=== PATIENT | male | born 1980 | race Caucasian/White ===

== ENCOUNTER 2017-07-05 17:46 | Emergency (ER) | payer BC, OTHER ==
[~2017-07-05] VITALS: Ht 180.3 cm; Wt 89.0 kg
[~2017-07-05 17:46] MED LIST: IBUP800T23 PO; INDO50CA PO; PERC5TAB12 PO; ULTR50TA PO; VICOTAB4 PO
[2017-07-05] MEDS ORDERED: IOHEXOL 350 MG/ML 10 ML VIAL (for RAD DIAG) IVCONTRAST ONE (17:47)
[2017-07-05 17:48] VITALS: BP 145/76; PULSE 100; RESP 16; TEMP 97.5; O2SAT 98
--- NOTE | 2017-07-05 19:39 | PD ---
HPI Chief Complaint: Abdominal Pain Time Seen by Provider: 19:27 Travel History International Travel<30 days: No Contact w/Intl Traveler<30days: No Traveled to known affect area: No History of Present Illness HPI 37yo M with no PMH presents to the ED with c/o abdominal pain since yesterday. Pain was more epigastric, periumbilical and intermittent. States pain is minimal and cramping like. Associated with nonbloody diarrhea. Had low grade fever for 4 days. Denies any nausea, vomiting, chest pain, sob, recent travel, dysuria, hematuria, testicular pain, penile discharge. Pt was seen at [facility] today and had negative influenza and told to come to the ED for further evaluation. PFSH Past Medical History Diminished Hearing: No ?: Not Social History Alcohol Use: No Tobacco Use: No Substance Use: No Allergies-Medications (Allergen,Severity, Reaction): Coded Allergies: No Known Allergies (Verified Allergy, Unknown, 07/05/17) Reported Meds & Prescriptions Reported Meds & Active Scripts Active Percocet 5-325 mg (Oxycodone/Acetaminophen) 1 Tab 1-2 Tab PO Q4H PRN Ibuprofen 800 Mg Tab 800 Mg PO Q8HR Reported Ultram (Tramadol HCl) 50 Mg Tab 50 Mg PO Q4H PRN Vicoprofen (Hydrocodone Bitartrate/Ibuprofen) 7.5 Mg/200 Mg Tab 1 Tab PO Q6H PRN FOR PAIN Indocin (Indomethacin) 50 Mg Cap 75 Mg PO EVERY OTHER DAY Review of Systems Except as stated in HPI: all other systems reviewed are Neg Physical Exam Narrative GENERAL: 37yo M in mild distress. SKIN: Focused skin assessment warm/dry. HEAD: Atraumatic. Normocephalic. EYES: Pupils equal and round. No scleral icterus. No injection or drainage. CARDIOVASCULAR: Regular rate and rhythm. No murmur appreciated. RESPIRATORY: No accessory muscle use. Clear to auscultation. Breath sounds equal bilaterally. GASTROINTESTINAL: Abdomen soft, +TTP epigastric region. +TTP RLQ. No rebound tenderness or guarding. MUSCULOSKELETAL: No obvious deformities. No clubbing. No cyanosis. No edema. NEUROLOGICAL: Awake and alert. No obvious cranial nerve deficits. Motor grossly within normal limits. Normal speech. PSYCHIATRIC: Appropriate mood and affect; insight and judgment normal. Data Data Last Documented VS Vital Signs Date Time Temp Pulse Resp B/P (MAP) Pulse Ox O2 Delivery O2 Flow Rate FiO2 07/05/17 20:38 16 07/05/17 17:48 97.5 100 145/76 (99) 98 Room Air Orders Orders Complete Blood Count With Diff (07/05/17 19:35) Comprehensive Metabolic Panel (07/05/17 19:35) Lipase (07/05/17 19:35) Prothrombin Time / Inr (Pt) (07/05/17 19:35) Act Partial Throm Time (Ptt) (07/05/17 19:35) Urinalysis - C+S If Indicated (07/05/17 19:35) Pantoprazole Inj (Protonix Inj) (07/05/17 19:45) Lactic Acid Sepsis Protocol (07/05/17 19:35) Ct Abd/Pel W Iv Contrast(Rout) (07/05/17 ) Iohexol 350 Inj (Omnipaque 350 Inj) (07/05/17 17:47) Labs Laboratory Tests Test 07/05/17 19:40 07/05/17 19:52 07/05/17 20:00 White Blood Count 4.5 TH/MM3 Red Blood Count 5.39 MIL/MM3 Hemoglobin 16.3 GM/DL Hematocrit 47.9 % Mean Corpuscular Volume 88.9 FL Mean Corpuscular Hemoglobin 30.2 PG Mean Corpuscular Hemoglobin Concent 34.0 % Red Cell Distribution Width 14.1 % Platelet Count 207 TH/MM3 Mean Platelet Volume 8.8 FL Neutrophils (%) (Auto) 68.0 % Lymphocytes (%) (Auto) 24.1 % Monocytes (%) (Auto) 7.2 % Eosinophils (%) (Auto) 0.2 % Basophils (%) (Auto) 0.5 % Neutrophils # (Auto) 3.1 TH/MM3 Lymphocytes # (Auto) 1.1 TH/MM3 Monocytes # (Auto) 0.3 TH/MM3 Eosinophils # (Auto) 0.0 TH/MM3 Basophils # (Auto) 0.0 TH/MM3 CBC Comment DIFF FINAL Differential Comment Prothrombin Time 11.3 SEC Prothromb Time International Ratio 1.1 RATIO Activated Partial Thromboplast Time 32.2 SEC Blood Urea Nitrogen 9 MG/DL Creatinine 1.17 MG/DL Random Glucose 88 MG/DL Total Protein 7.8 GM/DL Albumin 3.6 GM/DL Calcium Level 8.6 MG/DL Alkaline Phosphatase 116 U/L Aspartate Amino Transf (AST/SGOT) 117 U/L Alanine Aminotransferase (ALT/SGPT) 182 U/L Total Bilirubin 0.4 MG/DL Sodium Level 135 MEQ/L Potassium Level 4.1 MEQ/L Chloride Level 102 MEQ/L Carbon Dioxide Level 28.3 MEQ/L Anion Gap 5 MEQ/L Estimat Glomerular Filtration Rate 70 ML/MIN Lipase 125 U/L Lactic Acid Level 0.7 mmol/L Urine Color YELLOW Urine Turbidity CLEAR Urine pH 5.5 Urine Specific Crum 1.017 Urine Protein TRACE mg/dL Urine Glucose (UA) NEG mg/dL Urine Ketones NEG mg/dL Urine Occult Blood NEG Urine Nitrite NEG Urine Bilirubin NEG Urine Urobilinogen LESS THAN 2.0 MG/DL Urine Leukocyte Esterase NEG Urine RBC 1 /hpf Urine WBC 1 /hpf Urine Mucus MANY /lpf Microscopic Urinalysis Comment CULT NOT INDICATED MDM Medical Decision Making Medical Screen Exam Complete: Yes Emergency Medical Condition: Yes Differential Diagnosis Acute gastroenteritis vs. pancreatitis vs. appendicitis vs. colitis Narrative Course 37yo M with abdominal pain, fever, and diarrhea. Pt is well appearing but tender in right lower abdomen on exam. Labs reviewed, no leukocytosis. AST/ ALT elevated. Pt said it was always elevated. Lactic acid normal. Lipase normal. UA negative. Pt given protonix. Does not want stronger pain medication. Given that pt had fever and RLQ pain on exam, will do CT to r/o appendicitis. CT a/p showed no acute intra-abdominal process. No CT evidence of acute appendicitis. Pt is nontoxic appearing and pain has resolved on its own. Return precautions given. Diagnosis Primary Impression: Diarrhea Qualified Codes: R19.7 - Diarrhea, unspecified Additional Impression: Elevated liver enzymes Patient Instructions: General Instructions Departure Forms: Tests/Procedures Additional Instructions: Please follow up with your primary care physician in 3-7 days regarding elevated liver enzymes. Return to the ED if symptoms worsen. Med/Other Pt SpecificInfo: No Change to Meds Disposition: 01 DISCHARGE HOME Condition: Stable Maryann Sinclair Jul 05, 2017 19:39
[2017-07-05] MEDS ORDERED: PANTOPRAZOLE SODIUM 40 MG VIAL IVP ONE (19:45)
[2017-07-05 20:17] LABS: AUTOMATED NEUTROPHIL # 3.1 TH/MM3 (1.8-7.7); BASOPHIL % 0.5 % (0.0-2.0); EOSINOPHIL % 0.2 % (0.0-4.0); HEMATOCRIT 47.9 % (39.0-51.0); HEMO FLAGS DIFF FINAL; LYMPH % 24.1 % (9.0-44.0); LYMPHOCYTE # 1.1 TH/MM3 (1.0-4.8); MEAN CELL VOLUME 88.9 FL (80.0-100.0); MEAN CORPUSCULAR HEMOGLOBIN 30.2 PG (27.0-34.0); MONO % 7.2 % (0.0-8.0); PLATELET COUNT 207 TH/MM3 (150-450); RED BLOOD COUNT 5.39 MIL/MM3 (4.50-5.90); RED CELL DISTRIBUTION WIDTH 14.1 % (11.6-17.2); WHITE BLOOD COUNT 4.5 TH/MM3 (4.0-11.0)
[2017-07-05 20:28] LABS: APTT (PATIENT) 32.2 SEC (24.3-30.1); INTERNATIONAL NORMALIZED RATIO 1.1 RATIO; PROTHROMBIN TIME - PATIENT 11.3 SEC (9.8-11.6)
[2017-07-05 20:42] LABS: BLOOD, URINE NEG (NEG); COMMENT (UR) CULT NOT INDICATED; CULTURE IF INDICATED CULT NOT INDICATED; GLUCOSE,URINE NEG (NEG); KETONE, URINE NEG (NEG); MUCUS URINE MANY /lpf (OCC); NITRITE,URINE NEG (NEG); PH, URINE 5.5 (5.0-8.5); URINE COLOR YELLOW (YELLW/STRAW)
[2017-07-05 20:46] LABS: ANION GAP 5 MEQ/L (5-15); AST (GOT) 117 U/L (15-37); BICARBONATE 28.3 MEQ/L (21.0-32.0); BLOOD UREA NITROGEN 9 MG/DL (7-18); CHLORIDE 102 MEQ/L (98-107); GLOMERULAR FILTRATION RATE 70 ML/MIN (>89); POTASSIUM 4.1 MEQ/L (3.5-5.1); SODIUM (NA) 135 MEQ/L (136-145)
[2017-07-05 20:50] LABS: ALKALINE PHOSPHATASE 116 U/L (45-117); ALT (GPT) 182 U/L (12-78); TOTAL BILIRUBIN ADULT 0.4 MG/DL (0.2-1.0)
--- NOTE | 2017-07-05 21:56 | RADRPT ---
EXAM DATE/TIME: 07/05/2017 21:29 [facility] COMPARISON: No previous studies available for comparison. INDICATIONS : Patient complains of abdominal pain, cold and flu symptoms. IV CONTRAST: 96 cc Omnipaque 350 (iohexol) IV ORAL CONTRAST: No oral contrast ingested. RADIATION DOSE: 8.46 CTDIvol (mGy) MEDICAL HISTORY : None SURGICAL HISTORY : None. ENCOUNTER: Initial ACUITY: 1 day PAIN SCALE: 5/10 LOCATION: Right lower quadrant TECHNIQUE: Volumetric scanning of the abdomen and pelvis was performed. Using automated exposure control and ad justment of the mA and/or kV according to patient size, radiation dose was kept as low as reasonably achievable to obtain optimal diagnostic quality images. DICOM format image data is available electro nically for review and comparison. FINDINGS: LOWER LUNGS: The visualized lower lungs are clear. LIVER: Homogeneous density without lesion. There is no dilation of the biliary tree. No calcified gallston es. SPLEEN: Normal size without lesion. PANCREAS: Within normal limits. KIDNEYS: Normal in size and shape. There is no mass, stone or hydronephrosis. ADRENAL GLANDS: Within normal limits. VASCULAR: There is no aortic aneurysm. BOWEL/MESENTERY: The stomach, small bowel, and colon demonstrate no acute abnormality. There is no free intraperitone al air or fluid. The appendix is normal. ABDOMINAL WALL: Within normal limits. RETROPERITONEUM: There is no lymphadenopathy. BLADDER: No wall thickening or mass. REPRODUCTIVE: Within normal limits. INGUINAL: There is no lymphadenopathy or hernia. MUSCULOSKELETAL: Mild degenerative changes and scoliosis of the thoracolumbar spine. CONCLUSION: 1. No acute intra-abdominal process. 2. No CT evidence of acute appendicitis. 3. Mild degenerative changes and scoliosis of the thoracolumbar spine. Cem Ortiz MD on July 05, 2017 at 21:50 Board Certified Radiologist. This report was verified electronically.
[2017-07-05 22:51] VITALS: BP 134/82
== END 2017-07-05 22:40 | disposition home or self-care (01) ==
LOC: NEPD 17:46
DX: R19.7 Diarrhea, unspecified (principal); R74.8 Abnormal levels of other serum enzymes; R50.9 Fever, unspecified; R10.33 Periumbilical pain; R10.31 Right lower quadrant pain
CPT/HCPCS: 74177; 80053; 81001; 83605; 83690; 85025; 85610; 85730; 96374; 99285; C9113; Q9967